=== PATIENT | female | born 1935 | race Caucasian/White ===

== ENCOUNTER 2020-12-10 15:29 | Emergency (ER) | payer OTHER, MEDICAID ==
[2020-12-10] MEDS ORDERED: SODIUM BICARBONATE [ADULT] 8.4% 50 MEQ/50 ML SYRINGE IVP ONE (18:18)
[2020-12-10] MEDS ORDERED: 0.9% SODIUM CHLORIDE 10 ML SYRINGE IVP ONE (18:18)
[2020-12-10] MEDS ORDERED: EPINEPHrine 1:10,000 [1 MG/10 ML] SYRINGE ONE (18:18)
[2020-12-10 19:14] LABS: COVID AG,FIA SOURCE NASOPHARYNGEAL
== END 2020-12-10 15:50 ==
LOC: EMS 15:29
DX: I46.9 Cardiac arrest, cause unspecified (principal); U07.1 COVID-19
CPT/HCPCS: 31500; 87426; 92950; 99291; J0171; J3490; U0003